=== PATIENT | female | born 1950 | race Caucasian/White ===

== ENCOUNTER 2024-01-12 15:29 | Emergency (ER) | payer OTHER ==
[~2024-01-12] VITALS: Ht 162.6 cm; Wt 49.9 kg
[2024-01-12 16:12] LABS: BASOPHILS % (AUTO) 0.1 % (0.0-2.0); EOSINOPHILS % (AUTO) 0.4 % (0.0-7.0); HEMATOCRIT 38.3 % (31.2-41.9); HEMOGLOBIN 12.8 g/dL (10.9-14.3); LYMPHOCYTES # (AUTO) 1.3 K/uL (0.8-4.8); LYMPHOCYTES % (AUTO) 12.9 % (20.5-51.5); MEAN CORPUSCULAR HEMOGLOBIN 33.7 uug (24.7-32.8); MEAN CORPUSCULAR HGB CONC 33 g/dL (32.3-35.6); MONOCYTES # (AUTO) 0.6 K/uL (0.1-1.30); MONOCYTES % (AUTO) 6.3 % (0.0-11.0); NEUTROPHILS # (AUTO) 8.1 K/uL (1.8-8.9); NEUTROPHILS % (AUTO) 80.3 % (38.5-71.5); PLATELET COUNT (AUTO) 359 K/uL (179-408); RED CELL DISTRIBUTION WIDTH 14.4 % (12.3-17.7); WHITE BLOOD COUNT (AUTO) 10.1 K/uL (3.8-11.8)
[2024-01-12 16:29] LABS: DIFFERENTIAL COMMENT 1
[2024-01-12 16:38] LABS: AMMONIA 16 umol/L (11-32); ETHANOL 203 MG/DL (0-10)
[2024-01-12 16:46] LABS: ALANINE AMINOTRANSFERASE 22 U/L (14-59); ALBUMIN 3.1 g/dL (3.4-5.0); ALKALINE PHOSPHATASE 98 U/L (50-136); ASPARTATE AMINOTRANSFERASE 25 U/L (15-37); BILIRUBIN,DIRECT 0.2 mg/dL (0.0-0.2); BILIRUBIN,TOTAL 0.5 mg/dL (0.2-1.0); CALCIUM 8.8 mg/dL (8.5-10.1); CARBON DIOXIDE 23 mmol/L (21-32); CHLORIDE 104 mmol/L (98-107); CREATININE 1.3 mg/dL (0.6-1.3); GLUCOSE 94 mg/dL (74-106); SODIUM SERUM 142 mmol/L (136-145); TOTAL PROTEIN, SERUM 6.8 g/dL (6.4-8.2); UREA NITROGEN, BLOOD 6 mg/dL (7-18)
[2024-01-12 16:47] LABS: POTASSIUM 2.1 mmol/L (3.5-5.1)
[2024-01-12] MEDS ORDERED: METRONIDAZOLE 500 MG/NS 100ML 100 ML IV ONE (16:51)
[2024-01-12] MEDS ORDERED: CEFTRIAXONE /D5W 50ML IVPB **ER PYXIS IV ONE (16:51)
[2024-01-12] MEDS ORDERED: VANCOMYCIN IV 200 ML ONE (16:51)
[2024-01-12] MEDS: CEFTRIAXONE 1 G in IV DEXTROSE 5% 50 ML IV ONE (16:59)
[2024-01-12] MEDS: IV NORMAL SALINE 1000 ML BAG IV ONE (16:59)
[2024-01-12] MEDS ORDERED: POTASSIUM CHLORIDE 20 MEQ TAB.PRT.SR ONE (17:00)
[2024-01-12] MEDS ORDERED: POTASSIUM BICARBONATE/CIT AC 25 MEQ TABLET.EFF ONE (17:04)
[2024-01-12] MEDS: POTASSIUM CHLORIDE 20 MEQ TAB.PRT.SR PO ONE (17:05)
[2024-01-12] MEDS: POTASSIUM BICARBONATE/CIT AC 25 MEQ TABLET.EFF PO ONE (17:24)
[2024-01-12] MEDS: METRONIDAZOLE 500 MG/NS 100ML 100 ML IV ONE (17:25)
[2024-01-12 17:44] LABS: ACETAMINOPHEN < 10.0 ug/mL (10-30)
[2024-01-12] MEDS ORDERED: POTASSIUM CHLORIDE 50 ML ONE (18:26)
[2024-01-12] MEDS: VANCOMYCIN IV 1,000 MG in IV DEXTROSE 5% 250 ML IV ONE (18:29)
[2024-01-12 18:35] LABS: *AMPHETAMINE, URINE NEGATIVE (NEGATIVE); *BARBITURATE, URINE NEGATIVE (NEGATIVE); *BENZODIAZEPINE, URINE NEGATIVE (NEGATIVE); *CANNABINOID, URINE NEGATIVE (NEGATIVE); *COCCAINE, URINE NEGATIVE (NEGATIVE); *OPIATE, URINE NEGATIVE (NEGATIVE); *PHENCYCLIDINE SCREEN,URINE NEGATIVE (NEGATIVE)
[2024-01-12] MEDS: POTASSIUM CHLORIDE 50 ML IV SCH (18:37)
[2024-01-12 18:41] LABS: FENTANYL, URINE NEGATIVE (NEGATIVE)
[2024-01-12 18:49] LABS: *BILIRUBIN,URIN NEGATIVE (NEGATIVE); *CLARITY,URINE CLEAR (CLEAR); *COLOR,URINE YELLOW (YELLOW); *KETONES,URINE NEGATIVE (NEGATIVE); *PROTEIN,URINE TRACE (NEGATIVE); *UROBILINOGEN,URINE 0.2 E.U./dl (NORMAL); LEUKOCYTE ESTERASE ,URINE 3+ (NEGATIVE); NITRITE, URINE POSITIVE (NEGATIVE); UGLUCOSE NEGATIVE (NEGATIVE)
[2024-01-12 18:57] LABS: *BLOOD, URINE TRACE (NEGATIVE)
[2024-01-12 19:27] LABS: BACTERIA,URINE MODERATE /HPF (NONE SEEN); MUCUS,URINE FEW /LPF (0-FEW); RBC,URINE 0-3 /HPF (0-3); SQUAMOUS EPITHELIAL CELL,UR FEW /HPF (NONE SEEN)
[2024-01-12 19:36] VITALS: O2SAT 97
== END 2024-01-12 21:45 | disposition home or self-care (01) ==
LOC: ER 15:31
DX: K57.32 Diverticulitis of large intestine without perforation or abscess without bleeding (principal); F10.129 Alcohol abuse with intoxication, unspecified; Z20.822 Contact with and (suspected) exposure to COVID-19; R51.9 Headache, unspecified; R07.89 Other chest pain; Y90.7 Blood alcohol level of 200-239 mg/100 ml
CPT/HCPCS: 80076; 80048; 81001; 82140; 85025; 85730; 87426; 87040 ×2; 84484; 36415; 93005 ×2; 71045; 70450; 74176; 99291; 96365; 96366; 96367; 83605 ×2; 87086; 80299; 80320; 80307; J0696; J3490; J3480; J3370; J7040 ×3; A4606; A4663; G0480

== ENCOUNTER 2024-08-15 17:24 | Emergency (ER) | payer OTHER ==
[~2024-08-15] VITALS: Ht 160 cm; Wt 49.9 kg
[2024-08-15 17:53] LABS: BASOPHILS % (AUTO) 0.6 % (0.0-2.0); EOSINOPHILS # (AUTO) 0.1 K/uL (0.0-0.7); EOSINOPHILS % (AUTO) 1.8 % (0.0-7.0); HEMATOCRIT 34.1 % (31.2-41.9); HEMOGLOBIN 11.3 g/dL (10.9-14.3); LYMPHOCYTES # (AUTO) 1.4 K/uL (0.8-4.8); LYMPHOCYTES % (AUTO) 25.7 % (20.5-51.5); MEAN CORPUSCULAR HEMOGLOBIN 29.9 uug (24.7-32.8); MEAN CORPUSCULAR HGB CONC 33 g/dL (32.3-35.6); MEAN CORPUSCULAR VOLUME 90.2 fL (75.5-95.3); MONOCYTES # (AUTO) 0.4 K/uL (0.1-1.30); MONOCYTES % (AUTO) 8.2 % (0.0-11.0); NEUTROPHILS # (AUTO) 3.4 K/uL (1.8-8.9); NEUTROPHILS % (AUTO) 63.7 % (38.5-71.5); PLATELET COUNT (AUTO) 498 K/uL (179-408); RED BLOOD CELL COUNT(AUTO) 3.78 MIL/uL (3.63-4.92); RED CELL DISTRIBUTION WIDTH 15.2 % (12.3-17.7); WHITE BLOOD COUNT (AUTO) 5.4 K/uL (3.8-11.8)
[2024-08-15 17:56] LABS: DIFFERENTIAL COMMENT 1
[2024-08-15 18:01] LABS: CALCIUM 8.8 mg/dL (8.5-10.1); CARBON DIOXIDE 23 mmol/L (21-32); CHLORIDE 112 mmol/L (98-107); CREATININE 1.2 mg/dL (0.6-1.3); GLUCOSE 127 mg/dL (74-106); POTASSIUM 3.5 mmol/L (3.5-5.1); SODIUM SERUM 148 mmol/L (136-145); UREA NITROGEN, BLOOD 18 mg/dL (7-18)
[2024-08-15 18:03] LABS: AMMONIA < 10 umol/L (11-32)
[2024-08-15 18:06] LABS: ETHANOL 204 MG/DL (0-10)
[2024-08-15 18:09] LABS: ACETAMINOPHEN < 2.0 ug/mL (10-30); ALANINE AMINOTRANSFERASE 28 U/L (14-59); ALKALINE PHOSPHATASE 83 U/L (50-136); ASPARTATE AMINOTRANSFERASE 43 U/L (15-37); BILIRUBIN,DIRECT 0.1 mg/dL (0.0-0.2); BILIRUBIN,TOTAL 0.2 mg/dL (0.2-1.0); TOTAL PROTEIN, SERUM 7.5 g/dL (6.4-8.2)
[2024-08-15] MEDS: SODIUM CHLORIDE IV ONE (21:00)
[2024-08-15 21:20] VITALS: O2SAT 96
[2024-08-15] MEDS ORDERED: CEFTRIAXONE /D5W 50ML IVPB **ER PYXIS IV ONE (21:29)
[2024-08-15] MEDS: CEFTRIAXONE 1 G in IV DEXTROSE 5% 50 ML IV ONE (21:30)
== END 2024-08-15 23:54 | disposition short-term general hospital (02) ==
LOC: ER 17:24
DX: R53.1 Weakness (principal); R06.00 Dyspnea, unspecified; R07.9 Chest pain, unspecified; R40.4 Transient alteration of awareness; R51.9 Headache, unspecified; R79.89 Other specified abnormal findings of blood chemistry; E87.6 Hypokalemia; Z60.2 Problems related to living alone
CPT/HCPCS: 80076; 80048; 82140; 85025; 85730; 84484 ×2; 71045; 70450; 72125; 99285; 96365; 80299; 80320; 80307; J0696; 36415; A4606; A4663; G0480